=== PATIENT | male | born 1990 | race African-American/Black ===

== ENCOUNTER 2024-08-12 10:41 | Emergency (ER) | payer OTHER ==
[~2024-08-12] VITALS: Ht 185.4 cm; Wt 60.1 kg
--- NOTE | 2024-08-12 11:04 | ED.PDOC ---
History of Present Illness HPI Comments 33-year-old male presents with a chief complaint of withdrawal symptoms. Patient is requesting Suboxone. Patient states that he used Fentanyl x 4 days ago. Patient is anxious, has tremors, and states that he has chest pain, has SOB, has abdominal pin, and has N/V/D. Patient is not cooperating with questions being asked and keeps saying yes to everything asked of him. Patient is adamant about being prescribed Suboxone. Chief Complaint: Withdrawal Time Seen by MD: 10:52 Reviewed Notes: Medications, Allergies Allergies: Coded Allergies: NO KNOWN ALLERGIES (Unverified , 08/12/24) Information Source: Patient Mode of Arrival: Ambulatory Severity: Moderate Timing: Days Duration: Since onset Prehospital treatment: None Past Medical History PAST MEDICAL HISTORY: Denies Surgical History: Denies all surgeries Family History Family History: Reviewed,noncontributory to illness Social History Smoker: Non-Smoker Alcohol: Denies ETOH Use Drugs: Denies Drug Use Lives In: Home Constitutional: denies: chills, diaphoresis, fatigue, fever, malaise, sweats, weakness, others EENTM: denies: blurred vision, double vision, ear bleeding, ear discharge, ear drainage, ear pain, ear ringing, eye pain, eye redness, hearing loss, mouth pain, mouth swelling, nasal discharge, nose bleeding, nose congestion, nose pain, photophobia, tearing, throat pain, throat swelling, voice changes, others Respiratory: denies: cough, hemoptysis, orthopnea, SOB at rest, shortness of breath, SOB with excertion, stridor, wheezing, others Cardiovascular: denies: chest pain, dizzy spells, diaphoresis, Dyspnea on exertion, edema, irregular heart beat, left arm pain, lightheadedness, palpitations, PND, syncope, others Gastrointestinal: denies: abdomen distended, abdominal pain, blood streaked bowels, constipated, diarrhea, dysphagia, difficulty swallowing, hematemesis, melena, nausea, poor appetite, poor fluid intake, rectal bleeding, rectal pain, vomiting, others Genitourinary: denies: burning, dysuria, flank pain, frequency, hematuria, incontinence, penile discharge, penile sore, pain, testicle pain, testicle swelling, urgency, others Neurological: denies: dizziness, fainting, headache, left sided numbness, left sided weakness, numbness, paresthesia, pre-existing deficit, right sided numbness, right sided weakness, seizure, speech problems, tingling, tremors, weakness, others Musculoskeletal: denies: back pain, gout, joint pain, joint swelling, muscle pain, muscle stiffness, neck pain, others Integumetry: denies: bruises, change in color, change in hair/nails, dryness, laceration, lesions, lumps, rash, wounds, others Allergic/Immunocompromised: denies: Difficulty Healing, Frequent Infections, Hives, Itching, others Hematologic/Lymphatic: denies: anemia, blood clots, easy bleeding, easy bruising, swollen glands, others Endocrine: denies: excessive hunger, excessive sweating, excessive thirst, excessive urination, flushing, intolerance to cold, intolerance to heat, unexplained weight gain, unexplained weight loss, others Psychiatric: denies: anxiety, bipolar disorder, depression, hopeless, panic disorder, schizophrenia, sleepless, suicidal, others All Other Systems: Reviewed and Negative ( PER HPI) Physical Exam General Appearance: Moderate Distress, Normal HEENT: Normal ENT Inspection, Pharynx Normal, TMs Normal Neck: Full Range of Motion, Non-Tender, Normal, Normal Inspection Respiratory: Chest Non-Tender, Lungs Clear, No Accessory Muscle Use, No Respiratory Distress, Normal Breath Sounds Cardiovascular: No Edema, No JVD, No Murmur, No Gallop, Normal Peripheral Pulses, Regular Rate/Rhythm Breast Exam: Deferred Gastrointestinal: No Organomegaly, Non Tender, No Pulsatile Mass, Normal Bowel Sounds, Soft Genitalia: Deferred Pelvic: Deferred Rectal: Deferred Extremities: No calf tenderness, Normal capillary refill, Normal inspection, Normal range of motion, Non-tender, No pedal edema Musculoskeletal : Apperance: Normal 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 Was a procedure done?: No Differential Dx Considerations may include: Narcotic withdrawal X-Ray, Labs, Meds, VS Vital Signs Date Time Temp Pulse Resp B/P (MAP) Pulse Ox O2 Delivery O2 Flow Rate FiO2 6/28/25 11:20 110 20 96 Room Air* 0 21 08/12/24 10:55 98.4 86 16 149/96 (113) 100 98.4 Current Medications Medications (Trade) Dose Ordered Sig/Fitz Route Start Time Stop Time Status Last Admin Lorazepam (Ativan Tablet) 2 mg ONCE ONCE PO 08/12/24 11:00 08/12/24 11:01 DC 08/12/24 11:09 Patient alert. Anxious. Vitals stable. Answering questions. He does not want anything done. He only wants prescription of Suboxone. He was given Ativan in the ER. Saturation pristine on room air. He is not septic. Denies shortness a breath. No leg swelling. Denies suicidal homicidal ideation. Was given prescription of Suboxone. Explained to the patient. Was told to follow up with his primary care physician. Was told to come back if there is any problem. Time of 1ST Reevaluation: 11:22 Reevaluation 1ST: Unchanged Patient Education/Counseling: Diagnosis, Treatment, Need For Follow Up Family Education/Counseling: No Family Present SEPSIS Sepsis Screen Physician Orders Drug Screen (08/12/24 10:56) Vital Signs Date Time Temp Pulse Resp B/P (MAP) Pulse Ox O2 Delivery O2 Flow Rate FiO2 08/12/24 11:20 110 20 96 Room Air* 0 21 08/12/24 10:55 98.4 86 16 149/96 (113) 100 98.4 Medications Medications Dose Ordered Sig/Fitz Route Start Time Stop Time Status Last Admin Dose Admin Lorazepam 2 mg ONCE ONCE PO 08/12/24 11:00 08/12/24 11:01 DC 08/12/24 11:09 Departure 1 Departure Time of Disposition: 11:31 Impression: Primary Impression: Narcotic withdrawal Disposition: 01 HOME / SELF CARE / HOMELESS Condition: Good e-Prescriptions Buprenorphine Hcl-Naloxone Hcl (Suboxone) 1 Mis Mis 1 STRIP SL DAILY for 5 Days, #7 STRIP Prov: IVETT HERNÁNDEZ MD 08/12/24 Discharged With: Self Critical Care Note Critical Care Time?: No Stability Stability form required: No Heart Score Heart Score: Heart Score Response (Comments) Value History N/A 0 EKG N/A 0 Age N/A 0 Risk Factors N/A 0 Troponin N/A 0 Total 0 I personally scribed for IVETT HERNÁNDEZ MD ([email or web address]) on 08/12/24 at 11:03. Electronically submitted by Frankie Goins ([email or web address]). IVETT HERNÁNDEZ MD Aug 12, 2024 11:03
[2024-08-12] MEDS: LORazepam 0.5 MG TAB PO ONE (11:09)
[2024-08-12 11:20] VITALS: PULSE 110; RESP 20; O2SAT 96
[2024-08-12] MEDS ORDERED: BUPR8MIS SL (11:32)
[2024-08-12 11:55] VITALS: BP 132/97; PULSE 98; RESP 16; TEMP 98.3; O2SAT 99
== END 2024-08-12 11:59 | disposition home or self-care (01) ==
LOC: ER 10:41
DX: F11.23 Opioid dependence with withdrawal (principal); F41.9 Anxiety disorder, unspecified